=== PATIENT | female | born 1990 | race Caucasian/White ===

== ENCOUNTER 2016-07-24 12:41 | Emergency (ER) | payer OTHER ==
[~2016-07-24] VITALS: Ht 167.6 cm; Wt 65.3 kg
[2016-07-24] MEDS ORDERED: TRINATE TABLET1 TAB PO (12:53)
[2016-07-24 13:12] LABS: URINE BILIRUBIN NEGATIVE (Negative); URINE BLOOD NEGATIVE (Negative); URINE COLOR YELLOW; URINE GLUCOSE-RANDOM* NEGATIVE (Negative); URINE KETONES NEGATIVE (Negative); URINE NITRITE NEGATIVE (Negative); URINE PROTEIN (DIPSTICK) NEGATIVE (Negative); URINE UROBILINOGEN 0.2 E.U./dl (0.2-1.0)
[2016-07-24 14:25] VITALS: BP 113/74
== END 2016-07-24 14:28 | disposition home or self-care (01) ==
LOC: ER 12:41
PROVIDERS: Emergency Medicine
DX: O26.892 Other specified pregnancy related conditions, second trimester (principal); N89.8 Other specified noninflammatory disorders of vagina; Z88.1 Allergy status to other antibiotic agents